=== PATIENT | female | born 1940 | race Caucasian/White ===

== ENCOUNTER 2020-07-06 13:09 | Emergency (ER) | payer MEDICARE, BC ==
[~2020-07-06] VITALS: Ht 160 cm; Wt 75.0 kg
[~2020-07-06 13:09] MED LIST: BACTRIM DS1 TAB PO; MELOXICAM7.5 MG PO
[2020-07-06 14:38] LABS: URINE BILIRUBIN - DIPSTICK NEGATIVE (NEGATIVE); URINE BLOOD DIPSTICK TRACE-INTACT (NEGATIVE); URINE CLARITY CLEAR; URINE COLOR YELLOW; URINE GLUCOSE - DIPSTICK 100 mg/dL (NEGATIVE); URINE KETONE NEGATIVE (NEGATIVE); URINE LEUK ESTERASE TRACE (Negative); URINE NITRITE - DIPSTICK NEGATIVE (Negative); URINE PROTEIN - DIPSTICK NEGATIVE (NEG-TRACE); URINE SPECIFIC GRAVITY <=1.005; URINE UROBILINOGEN - DIPSTICK 0.2 E.U./dL (0.2)
[2020-07-06] MEDS ORDERED: TRAMADOL HYDROC50 MG PO (14:51)
[2020-07-06] MEDS ORDERED: PREDNISONE50 MG PO (14:51)
[2020-07-06 14:56] VITALS: BP 158/72
== END 2020-07-06 15:03 | disposition home or self-care (01) ==
LOC: ED 13:09
DX: M54.31 Sciatica, right side (principal)

== ENCOUNTER 2023-07-19 18:32 | Emergency (ER) | payer MEDICARE, BC ==
[~2023-07-19] VITALS: Ht 157.5 cm; Wt 71.6 kg
[~2023-07-19 18:32] MED LIST changes: +PREDNISONE50 MG PO; +TRAMADOL HYDROC50 MG PO
[2023-07-19 19:21] VITALS: BP 201/88
[2023-07-19] MEDS ORDERED: traMADol HCL 50 MG/TAB PO ONE (19:55)
[2023-07-19] MEDS ORDERED: cloNIDine HCL 0.1 MG/TAB PO ONE (19:55)
[2023-07-19 20:05] VITALS: BP 213/103
[2023-07-19 20:13] LABS: BASO% 0.1 % (0-3); EOS% 4.8 % (0-8); HEMATOCRIT 45.9 % (37.0-47.0); HEMOGLOBIN 14.7 g/dl (12.0-16.0); IMMATURE GRANULOCYTES 0.3 % (0.0-5.0); LYMPH% 50.6 % (15-41); MEAN CELL VOLUME 87.3 fL CALC (80.0-100.0); MEAN CORPUSCULAR HGB 27.9 pG CALC (26.0-32.0); MONO% 9.7 % (2-13); NEUT# 3.63 thou/uL (2.00-7.15); NEUT% 34.5 % (42-76); RED BLOOD COUNT 5.26 mill/uL (4.20-5.60); RED CELL DISTRI WIDTH 13.3 % (11.5-15.5)
[2023-07-19 20:38] LABS: D-DIMER 2.25 mg/L (0.19-0.60)
[2023-07-19 20:39] LABS: PROTHROMBIN TIME 9.7 SECONDS (9.0-12.5)
[2023-07-19 20:41] LABS: ALBUMIN 4.3 g/dL (3.2-5.0); ALKALINE PHOSPHATASE 118 u/l (38-126); ANION GAP 12 (6-22 (CALC)); BILIRUBIN, TOTAL 0.6 mg/dL (0.02-1.3); BUN 26 mg/dL (8-23); BUN/CREATININE RATIO 31 (12-20 (CALC)); CARBON DIOXIDE 27 mmol/l (22-30); CHLORIDE 105 mmol/l (95-108); CREATININE 0.9 mg/dL (0.5-1.0); GFR FOR AFR.AMER. > 60 ML/MIN (>=60 (CALC)); GFR OTHER RACES 60 ML/MIN (>=60 (CALC)); POTASSIUM 3.9 mmol/l (3.5-5.1); SGOT/AST 34 u/l (9-36); SODIUM 140 mmol/l (137-146); TOTAL PROTEIN 7.8 g/dL (6.3-8.2)
[2023-07-19 21:00] VITALS: BP 172/85
[2023-07-19 21:18] VITALS: BP 214/89
[2023-07-19 21:28] LABS: URINE BILIRUBIN - DIPSTICK Negative (NEGATIVE); URINE BLOOD DIPSTICK Trace-lysed (NEGATIVE); URINE CLARITY Clear; URINE GLUCOSE - DIPSTICK Negative (NEGATIVE); URINE KETONE Negative (NEGATIVE); URINE LEUK ESTERASE Negative (Negative); URINE NITRITE - DIPSTICK Negative (Negative); URINE PH 5.5 (4.5-8.0); URINE PROTEIN - DIPSTICK 100 mg/dL (NEG-TRACE); URINE SPECIFIC GRAVITY >=1.030; URINE UROBILINOGEN - DIPSTICK 0.2 E.U./dL (0.2)
[2023-07-19 21:31] LABS: URINE COLOR Yellow
[2023-07-19 21:34] LABS: URINE RBC 0-2 RBC/hpf (0-5); URINE SQUAMOUS EPITHELIAL CELL MANY EPI/hpf (0-FEW)
[2023-07-19 23:35] VITALS: BP 164/77
== END 2023-07-19 23:35 | disposition home or self-care (01) ==
LOC: ED 18:32
PROVIDERS: Family Medicine; Nurse Practitioner
DX: M79.604 Pain in right leg (principal); M79.89 Other specified soft tissue disorders; M79.605 Pain in left leg; S90.111A Contusion of right great toe without damage to nail, initial encounter; W22.03XA Walked into furniture, initial encounter; Z84.89 Family history of other specified conditions

== ENCOUNTER 2024-04-20 12:52 | Emergency (ER) | payer MEDICARE, BC ==
[~2024-04-20] VITALS: Ht 157.5 cm; Wt 76.0 kg
[2024-04-20 13:13] VITALS: BP 192/66
[2024-04-20 13:20] VITALS: BP 148/79
[2024-04-20 13:30] VITALS: BP 151/74
[2024-04-20 13:39] LABS: BASO% 0.1 % (0-3); EOS% 5.5 % (0-8); HEMATOCRIT 40.1 % (37.0-47.0); IMMATURE GRANULOCYTES 1.4 % (0.0-5.0); LYMPH% 37.7 % (15-41); MEAN CELL VOLUME 89.1 fL CALC (80.0-100.0); MEAN CORPUSCULAR HGB 27.1 pG CALC (26.0-32.0); MEAN CORPUSCULAR HGB CONC 30.4 g/dL CAL (32.0-36.0); MONO% 11.9 % (2-13); NEUT# 4.21 thou/uL (2.00-7.15); NEUT% 43.4 % (42-76); RED BLOOD COUNT 4.5 mill/uL (4.20-5.60); RED CELL DISTRI WIDTH 13.3 % (11.5-15.5)
[2024-04-20 13:43] LABS: HEMOGLOBIN 12.2 g/dl (12.0-16.0)
[2024-04-20 13:49] LABS: ALBUMIN 3.6 g/dL (3.2-5.0); ALKALINE PHOSPHATASE 104 u/l (38-126); ANION GAP 15 (6-22 (CALC)); BILIRUBIN, TOTAL 0.7 mg/dL (0.02-1.3); BUN 11 mg/dL (8-23); BUN/CREATININE RATIO 16 (12-20 (CALC)); CARBON DIOXIDE 24 mmol/l (22-30); CHLORIDE 107 mmol/l (95-108); CREATININE 0.7 mg/dL (0.5-1.0); ESTIMATED GFR 86 ML/MIN (>=90 (CALC)); POTASSIUM 4.3 mmol/l (3.5-5.1); SGOT/AST 30 u/l (9-36); SODIUM 141 mmol/l (137-146); TOTAL PROTEIN 7.1 g/dL (6.3-8.2)
[2024-04-20 14:01] LABS: ACT PARTIAL THROMBO TIME 25.3 SECONDS (20.0-32.5); PROTHROMBIN TIME 10.3 SECONDS (9.0-12.5)
[2024-04-20] MEDS ORDERED: ENOXAPARIN SODIUM 80 MG/0.8 ML SYR SC ONE (14:15)
[2024-04-20 14:28] LABS: URINE BILIRUBIN - DIPSTICK Negative (NEGATIVE); URINE BLOOD DIPSTICK Trace-lysed (NEGATIVE); URINE GLUCOSE - DIPSTICK Negative (NEGATIVE); URINE KETONE Negative (NEGATIVE); URINE LEUK ESTERASE Negative (NEGATIVE); URINE NITRITE - DIPSTICK Negative (Negative); URINE PH 5.5 (4.5-8.0); URINE PROTEIN - DIPSTICK Negative (NEG-TRACE); URINE UROBILINOGEN - DIPSTICK 0.2 E.U./dL (0.2)
[2024-04-20] MEDS ORDERED: ORPHENADRINE CITRATE 30 MG/ML AMP IV ONE (14:30)
[2024-04-20] MEDS ORDERED: KETOROLAC TROMETHAMINE 15 MG/ML SDV IV ONE (14:30)
[2024-04-20 14:31] LABS: URINE COLOR Yellow
[2024-04-20 14:41] VITALS: BP 209/100
[2024-04-20] MEDS ORDERED: XARELTO STARTER1 TAB PO (15:00)
[2024-04-20 15:01] VITALS: BP 187/88
[2024-04-20 15:17] VITALS: BP 187/88
== END 2024-04-20 15:22 | disposition home or self-care (01) ==
LOC: ED 12:52
PROVIDERS: Nurse Practitioner
DX: I82.431 Acute embolism and thrombosis of right popliteal vein (principal); I10 Essential (primary) hypertension; Z98.1 Arthrodesis status
CPT/HCPCS: J1650

== ENCOUNTER 2024-06-30 12:30 | Emergency (ER) | payer MEDICARE, BC ==
[2024-06-30] VITALS (9 sets, daily range): BP systolic 183–218; BP diastolic 87–104
[~2024-06-30] VITALS: Ht 157.5 cm; Wt 72.0 kg
[~2024-06-30 12:30] MED LIST changes: +XARELTO STARTER1 TAB PO
[2024-06-30] MEDS ORDERED: COLCHICINE 0.6 MG/TAB PO ONE (12:50)
[2024-06-30] MEDS ORDERED: KETOROLAC TROMETHAMINE 30 MG/ML SDV IM ONE (12:50)
[2024-06-30] MEDS ORDERED: methylPREDNISolone SODIUM SUCC 125 MG/2 ML SDV IM ONE (12:50)
[2024-06-30 13:20] LABS: BASO% 0.1 % (0-3); EOS% 0.6 % (0-8); HEMATOCRIT 42.4 % (37.0-47.0); IMMATURE GRANULOCYTES 0.2 % (0.0-5.0); LYMPH% 8.5 % (15-41); MEAN CELL VOLUME 87.6 fL CALC (80.0-100.0); MEAN CORPUSCULAR HGB 26.9 pG CALC (26.0-32.0); MEAN CORPUSCULAR HGB CONC 30.7 g/dL CAL (32.0-36.0); MONO% 2.4 % (2-13); NEUT# 9.29 thou/uL (2.00-7.15); NEUT% 88.2 % (42-76); RED BLOOD COUNT 4.84 mill/uL (4.20-5.60); RED CELL DISTRI WIDTH 13.8 % (11.5-15.5)
[2024-06-30] MEDS ORDERED: LABETALOL HCL 100 MG/20 ML VIAL IV ONE (13:20)
[2024-06-30 13:38] LABS: CREATININE 0.8 mg/dL (0.5-1.0); POTASSIUM 4.1 mmol/l (3.5-5.1)
[2024-06-30] MEDS ORDERED: MOTRIN400 MG/TAB PO (14:48)
[2024-06-30] MEDS ORDERED: PREDNISONE50 MG PO (14:48)
[2024-06-30] MEDS ORDERED: MITIGARE0.6 MG PO (14:48)
[2024-06-30] MEDS ORDERED: HYDROCO/APAP1 TA9 PO (14:48)
== END 2024-06-30 15:04 | disposition home or self-care (01) ==
LOC: ED 12:30
PROVIDERS: Family Medicine
DX: M10.031 Idiopathic gout, right wrist (principal); I10 Essential (primary) hypertension
CPT/HCPCS: J1920

== ENCOUNTER 2024-08-13 17:08 | Emergency (ER) | payer MEDICARE, BC ==
[~2024-08-13 17:08] MED LIST changes: +HYDROCO/APAP1 TA9 PO; +MITIGARE0.6 MG PO; +MOTRIN400 MG/TAB PO
== END 2024-08-13 19:30 | disposition left against medical advice (07) ==
LOC: ED 17:08 → LWOBS 19:30
DX: Z53.21 Procedure and treatment not carried out due to patient leaving prior to being seen by health care provider (principal)